=== PATIENT | male | born 1955 | race Caucasian/White ===

== ENCOUNTER 2018-06-21 19:40 | Emergency (ER) | payer OTHER ==
[~2018-06-21] VITALS: Ht 175.3 cm; Wt 61.0 kg
[~2018-06-21 19:40] MED LIST: AMOXICILLIN 50500 MG PO; BACTRIM DS TAB1 EACH PO; CIPRODEX OTIC7.5 ML OTIC; DOXYCYCLINE 10100 MG PO; HYDROCODONE-AP1 EAC6 PO; IBUPROFEN 800800 M1 PO; NORCO 5-325 TA1 EACH PO; PENICILLIN V P500 MG PO; PREDNISONE 10 M10 M1 PO
[2018-06-21 20:54] LABS: ABSOLUTE BASOPHILS 0.1 thou/uL (0.0-0.2); ABSOLUTE EOSINOPHILS 0.1 thou/uL (0.0-0.7); ABSOLUTE LYMPHOCYTES 1.3 thou/uL (0.8-5.3); ABSOLUTE MONOCYTES 0.8 thou/uL (0.0-1.2); BASOPHILS 0.8 %; EOSINOPHILS 1.7 %; HEMATOCRIT 40.6 % (42.0-52.0); HEMOGLOBIN 13.9 gm/dL (14.0-18.0); LYMPHOCYTES 15.5 %; MCH 30.9 pg (26.0-34.0); MCHC 34.3 g/dL (28.0-37.0); MONOCYTES 10.1 %; MPV 7.8 fl. (7.2-11.1); NUCLEATED RBCS 0 /100WBC; PLATELET COUNT* 361 thou/uL (150-400); POLYS 71.9 %; RDW-CV 14.4 % (10.5-14.5); WBC 8.3 thou/uL (4.0-11.0)
[2018-06-21 21:02] LABS: ANION GAP 7 mmol/L (7-16); BUN 20 mg/dL (7-18); CALCIUM 9.7 mg/dL (8.5-10.1); CHLORIDE 104 mmol/L (98-107); CO2 27 mmol/L (21-32); CREATININE 0.7 mg/dL (0.6-1.3); GLUCOSE 105 mg/dL (70-99); POTASSIUM 3.7 mmol/L (3.5-5.1); SODIUM 138 mmol/L (136-145)
[2018-06-21 21:12] LABS: ALBUMIN 3.3 g/dL (3.4-5.0); ALKALINE PHOSPHATASE 293 U/L (46-116); LIPASE 160 U/L (73-393); NT-PRO BRAIN NAT PEPTIDE 47 pg/mL (<300); SGOT 16 U/L (15-37); SGPT 18 U/L (30-65); TOTAL BILIRUBIN 0.4 mg/dL (<0.1-1.0); TOTAL PROTEIN 7.8 g/dL (6.4-8.2); TROPONIN-I LEVEL <0.06 ng/mL (<0.06)
[2018-06-21 22:06] LABS: ESR (SEDRATE) 28 mm/hr (0-20)
[2018-06-21 22:17] LABS: URINE BILIRUBIN NEGATIVE (Negative); URINE BLOOD TRACE (Negative); URINE CLARITY CLOUDY; URINE COLOR YELLOW; URINE GLUCOSE-RANDOM NEGATIVE (Negative); URINE KETONES NEGATIVE (Negative); URINE PROTEIN TRACE (Negative); URINE SPECIFIC GRAVITY >= 1.030 (1.005-1.030); URINE UROBILINOGEN 0.2 E.U./dl (0.2-1.0)
[2018-06-21 22:18] LABS: URINE LEUKOCYTES-REFLEX 2+ (Negative); URINE NITRITE-REFLEX POSITIVE (Negative)
[2018-06-21] MEDS ORDERED: KEFLEX500 M1 PO (22:33)
[2018-06-21 22:34] LABS: AMP/METHAMP POSITIVE (Negative); BARBITURATES Negative (Negative); BENZODIAZEPINES Negative (Negative); COCAINE Negative (Negative); METHADONE Negative (Negative); OPIATES Negative (Negative); PCP Negative (Negative); THC Negative (Negative)
[2018-06-21 22:44] LABS: SQUAMOUS 0-3 Few /LPF (0-3)
[2018-06-21 22:45] VITALS: BP 107/67
[2018-06-21 22:45] LABS: BACTERIA-REFLEX >30 Many /HPF (None Seen); CRYSTALS None Seen /LPF (None Seen); HYALINE CASTS 0-3 Few /LPF (None Seen); MUCUS 4-6 Moderate strn/LPF (None Seen); URINE RBC 0-2 Rare /HPF (0-2); URINE WBC-REFLEX >25 Many /HPF (0-5)
--- NOTE | 2018-06-22 17:24 | EKG ---
[place] [address] ELECTROCARDIOGRAM REPORT Name: JACINTA MELGAR Room: [facility]#: [id number] Admission: 06/21/18 Attend Phys: Discharge: 06/21/18 Date of : 59 Report #: [id number] THIS REPORT FOR: //name// [facility] [place] ED Test Date: 2018-06-21 Test Time: 21:06:57 Pat Name: JACINTA MELGAR Department: Room: Gender: Office 365 Consultant: RENETTA : 1955 Requested By: Alexa Lynn Order Number: [id number] MD: Cesar Lima Measurements Intervals [place] Rate: 86 P: 79 MN: 162 QRS: 54 QRSD: 81 T: 64 QT: 346 QTc: 414 Interpretive Statements Sinus rhythm Atrial premature complex Consider left ventricular hypertrophy No previous ECG available for comparison Electronically Signed On 06-22-2018 17:24:02 CDT by Cesar Lima [email or web address] <ELECTRONICALLY SIGNED> By: Cesar Lima MD, [facility] 06/22/18 1724 [id number] Cesar Lima MD, FACC /EPI
== END 2018-06-21 22:45 | disposition left against medical advice (07) ==
LOC: M.ERS 19:40
PROVIDERS: Nurse Practitioner Family
DX: M06.9 Rheumatoid arthritis, unspecified (principal); F15.10 Other stimulant abuse, uncomplicated; N39.0 Urinary tract infection, site not specified; G62.9 Polyneuropathy, unspecified; F17.210 Nicotine dependence, cigarettes, uncomplicated; Z79.899 Other long term (current) drug therapy